=== PATIENT | female | born 2000 | race Caucasian/White ===

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

== ENCOUNTER 2022-12-02 10:35 | Day surgery (SDC) | payer BC ==
[2022-11-29 15:50] VITALS: BMI 24.7
[2022-12-02] MEDS ORDERED: LACTATED RINGERS 1,000 ML IV SCH (10:52)
[2022-12-02] MEDS ORDERED: LIDOCAINE 1% (10MG/ML) FOR IV START INTRADERMA PRN (10:52)
[2022-12-02] MEDS ORDERED: ONDANSETRON 4 MG/2 ML VIAL IVP PRN (10:52)
[2022-12-02 11:15] VITALS: TEMP 98
[2022-12-02] MEDS ORDERED: PROPOFOL 10 MG/ML 20 ML VIAL IV ONE (12:12)
--- NOTE | 2022-12-02 12:29 | P.PCN ---
Date of Procedure: 12/02/22 Procedure(s) Performed: BRIEF HISTORY: Patient is a 22-year-old pleasant white female scheduled for an elective pouchoscopy as a part of evaluation of rectal bleeding and diarrhea for the last few months duration. She has history of ulcerative colitis and is status post total proctocolectomy with ileal pouch anal anastomosis and about 5 years ago. Recently has been having rectal bleeding and diarrhea and was treated with Flagyl for 2 weeks and the symptoms are significantly improved. PROCEDURE PERFORMED: Pouchoscopy with biopsy. PREOPERATIVE DIAGNOSIS: Rectal bleeding and diarrhea of 2 weeks duration. IV sedation per Anesthesia. PROCEDURE: After informed consent was obtained, the patient, was brought into the endoscopy unit. IV sedation was administered by Anesthesia under continuous monitoring. Digital rectal examination was normal. The Olympus CF 180 video colonoscope was then inserted in the rectum and gradually advanced into the ileal pouch and into the distal ileum up to 40 cm from the anal verge. There was scattered erosions noted at 30 cm from the anal verge in the distal ileum and biopsies were done from this area. The rest of the distal ileum appeared normal. The scope was withdrawn to the ileal pouch and there was mild erythema with scattered erosions identified involving the entire pouch and multiple biopsies were done from this area. The patient tolerated the procedure well. IMPRESSION: Scattered erosions with mild mucosal erythema in the ileal pouch consistent with mild pouchitis Scattered erosions in the distal ileum about 3 cm from the anal verge status post biopsies RECOMMENDATIONS: Findings of this examination were discussed with the patient as well as a family. She was advised to follow up in office in 2 weeks.
[2022-12-02 13:05] VITALS: BP 101/66; PULSE 60; RESP 16
== END 2022-12-02 13:37 | disposition home or self-care (01) ==
LOC: ORWHC2ENDO 10:35
PROVIDERS: ATTEND Internal Medicine Gastroenterology
DX: K91.850 Pouchitis (principal); K52.89 Other specified noninfective gastroenteritis and colitis; M41.9 Scoliosis, unspecified; F32.A Depression, unspecified; F41.9 Anxiety disorder, unspecified; Z79.899 Other long term (current) drug therapy
CPT/HCPCS: 81025; 88305; 45380; J2704